=== PATIENT | male | born 1995 | race Caucasian/White ===

== ENCOUNTER 2020-03-12 15:13 | Emergency (ER) | payer MEDICAID ==
[~2020-03-12] VITALS: Ht 180.3 cm; Wt 79.4 kg
--- NOTE | 2020-03-12 15:20 | NUR ---
BIBRA 59 AND [employer], FROM HOME. PLACED ON 5150 FOR BEING DANGER TO SELF AND GRAVELY DISABLED FOR NOT EATING. PER REPORT, "TEXTED MOM THAT HE WANTS TO HURT HIMSELF, TOOK UNKNOWN AMOUNT OF XANAX, ADMITS TO DRINKING ALCOHOL". TO ER BED 12, HOOKED TO MONITOR, CHANGED TO HOSP GOWN, WARM BLANKET PROVIDED, PATIENT AAO x 4, BREATHING EVEN AND UNLABORED. SITTER AT BEDSIDE FOR SAFETY. DR HUANG AT BEDSIDE
--- NOTE | 2020-03-12 16:00 | NUR ---
URINE SAMPLE COLLECTED AND SENT TO LAB
--- NOTE | 2020-03-12 16:02 | NUR ---
ENVIRONMENTAL ENGINEERING AIDE AT BEDSIDE FOR XRAY
[2020-03-12 16:40] LABS: BILIRUBIN,URINE NEGATIVE (NEGATIVE); BLOOD, URINE SMALL Ery/uL (NEGATIVE); COLOR,URINE YELLOW (YELLOW); LEUKOCYTE ESTERASE ,URINE NEGATIVE (NEGATIVE); NITRITE, URINE NEGATIVE (NEGATIVE); PROTEIN,URINE NEGATIVE (NEGATIVE); UGLUCOSE NEGATIVE (NEGATIVE); UROBILINOGEN,URINE 0.2 EU/dL (0.2)
[2020-03-12 16:50] LABS: BASOPHILS # (AUTO) 0.1 /CMM (0.0-0.2); BASOPHILS % (AUTO) 1.7 % (0.0-2.0); EOSINOPHILS % (AUTO) 5.4 % (0.0-6.0); HEMATOCRIT 41 % (39-51); HEMOGLOBIN 14.1 g/dL (13.5-17.5); LYMPHOCYTES # (AUTO) 1.5 /CMM (0.8-4.8); LYMPHOCYTES % (AUTO) 31.1 % (20.0-44.0); MEAN CORPUSCULAR HGB CONC 35 g/dl (31.0-36.0); MEAN CORPUSCULAR VOLUME 96 fL (80-96); MONOCYTES # (AUTO) 0.5 /CMM (0.1-1.30); MONOCYTES % (AUTO) 10.1 % (2.0-12.0); NEUTROPHILS # (AUTO) 2.5 /CMM (1.8-8.9); NEUTROPHILS % (AUTO) 51.7 % (43.0-81.0); PLATELET COUNT (AUTO) 227 /CMM (150-450); RED BLOOD CELL COUNT(AUTO) 4.21 MIL/uL (4.5-6.0); WHITE BLOOD COUNT (AUTO) 4.9 K/uL (4.3-11.0)
[2020-03-12 16:51] LABS: BACTERIA,URINE None seen /HPF (None Seen); RBC,URINE 0-2 /HPF (0-2); SQUAMOUS EPITHELIAL CELL,UR 0-2 /HPF (None Seen); WBC,URINE 0-2 /HPF (0-3)
[2020-03-12 17:06] LABS: CALCIUM, SERUM 9.4 mg/dL (8.5-10.1); CARBON DIOXIDE 24 mmol/L (21-32); CHLORIDE 102 mmol/L (98-107); CREATININE 0.8 mg/dL (0.6-1.3); GLUCOSE 65 mg/dL (74-106); POTASSIUM 3.8 mmol/L (3.5-5.1); SODIUM SERUM 139 mmol/L (136-145); UREA NITROGEN, BLOOD 10 mg/dL (7-18)
[2020-03-12 17:33] LABS: ALANINE AMINOTRANSFERASE 135 U/L (12-78); ALBUMIN 4.2 g/dL (3.4-5.0); ALCOHOL, BLOOD 99 mg/dL (0-0); ALKALINE PHOSPHATASE 72 U/L (46-116); ASPARTATE AMINOTRANSFERASE 61 U/L (15-37); BILIRUBIN,DIRECT 0.6 mg/dL (0.0-0.2); BILIRUBIN,TOTAL 1.9 mg/dL (0.2-1.0); TOTAL PROTEIN, SERUM 7.6 g/dL (6.4-8.2)
[2020-03-12 17:34] LABS: ACETAMINOPHEN < 2 ug/ml (10-30)
--- NOTE | 2020-03-12 17:50 | NUR ---
CALLED POISON CONTROL [phone] VS 129/77 92 99%
[2020-03-12] MEDS ORDERED: TDAP [DIPH/PERTUSSIS/TET] 0.5 ML VIAL IM ONE ×2 (18:00→18:13)
[2020-03-12 18:26] VITALS: BP 122/66
--- NOTE | 2020-03-12 18:36 | NUR ---
[facility] await[facility].
--- NOTE | 2020-03-12 18:48 | NUR ---
sara tello talking to dr ngo.
--- NOTE | 2020-03-12 18:55 | NUR ---
called sai buckley for crisis eval. left a message.
--- NOTE | 2020-03-12 19:15 | NUR ---
PT AAOX4, VSS, RESPIRATIONS EVEN AND UNLABORED ON RA W/ AND NOTED. SITTER AT BEDSIDE FOR SAFETY. PRECAUTIONS IMPLEMENTED. WILL CONTINUE TO MONITOR
--- NOTE | 2020-03-12 20:06 | NUR ---
COVID SWAB SAMPLE COLLECTED SENT TO THE LAB.
[2020-03-12] MEDS ORDERED: LORAZEPAM 1 MG TABLET ONE (20:26)
[2020-03-12] MEDS ORDERED: LORAZEPAM 1 MG TABLET PO ONE (21:00)
--- NOTE | 2020-03-13 00:40 | NUR ---
CALLED CARD READER SAGE CARDENAS FOR EVALAUTION. NO ANSWER, WILL FOLLOW UP
--- NOTE | 2020-03-13 01:20 | NUR ---
RONALD CHIEF CARDIOPULMONARY TECHNOLOGIST CALLED. STATES WILL BE HERE IN ABOUT 1 HOUR.
--- NOTE | 2020-03-13 02:08 | NUR ---
Valery Crisis accounting methods analyst at bedside. Pt cleared from 5150 hold.
== END 2020-03-13 02:56 | disposition home or self-care (01) ==
LOC: ER 15:22
DX: R45.851 Suicidal ideations (principal); S80.02XA Contusion of left knee, initial encounter; S80.01XA Contusion of right knee, initial encounter; S60.222A Contusion of left hand, initial encounter; S50.02XA Contusion of left elbow, initial encounter; S50.01XA Contusion of right elbow, initial encounter; V87.8XXA Person injured in other specified noncollision transport accidents involving motor vehicle (traffic), initial encounter; Y92.89 Other specified places as the place of occurrence of the external cause; Z82.49 Family history of ischemic heart disease and other diseases of the circulatory system; F19.10 Other psychoactive substance abuse, uncomplicated; F10.129 Alcohol abuse with intoxication, unspecified; Y90.4 Blood alcohol level of 80-99 mg/100 ml; Z86.59 Personal history of other mental and behavioral disorders; R94.31 Abnormal electrocardiogram [ECG] [EKG]
CPT/HCPCS: 36415; 73080 ×2; 73130; 73564 ×2; 73590; 80048; 80076; 80299; 80307; 80320; 81001; 84484; 85025; 85610; 85730; 87426; 90471; 90715; 93005; 99285; C9803; 81000-TC; G0480

== ENCOUNTER 2020-08-16 01:35 | Emergency (ER) | payer MEDICAID ==
[~2020-08-16] VITALS: Ht 180.3 cm; Wt 79.4 kg
--- NOTE | 2020-08-16 01:46 | NUR ---
ELI 59 FROM HOME FOR ETOH.PT A, OX3, RESPONSIVE AND ADMITTED ON DRINKING ALCOHOL EARLIER. PER EMS"MOM FOUND HIM UNRESPONSIVE", PT TO BED 11, ALERT, RESPONDS TO SIMPLE QUESTIONS, PLACED ON MONITOR, NOT IN ANY DISTRESS, -SOB. DENIES CP. VSS. PENDING ER PROVIDER SADI
--- NOTE | 2020-08-16 06:00 | NUR ---
PT AWAKE, ANSWERING QUESTIONS APPROPRIETLY, PT UNABLE TO AMBULATE WITH STEADY GAIT AT THIS TIME.
--- NOTE | 2020-08-16 08:34 | NUR ---
PATIENT A/OX4, BREATHING EVEN AND UNLABORED, NO SOB NOTED, ROADTEST DONE, PATIENT AMBULATORY WITH STEADY GAIT. NEEDS ATTENDED. WATER PROVIDED. PATIENT'S CALLING HIS MOM FOR MILITARY SCIENCE INSTRUCTOR. Patient discharged to home in stable condition. Written and verbal after care instructions given. Patient verbalizes understanding of instruction.
[2020-08-16 08:35] VITALS: BP 104/55
--- NOTE | 2020-08-16 08:44 | NUR ---
MOM WILL PICK HIM UP IN 40 MINS
== END 2020-08-16 09:14 | disposition home or self-care (01) ==
LOC: ER 01:36
DX: F10.129 Alcohol abuse with intoxication, unspecified (principal); F32.9 Major depressive disorder, single episode, unspecified; F41.9 Anxiety disorder, unspecified; Y90.9 Presence of alcohol in blood, level not specified

== ENCOUNTER 2021-11-27 14:06 | Inpatient (IN) | payer BC, MEDICAID ==
[~2021-11-27] VITALS: Ht 177.8 cm; Wt 92.1 kg
--- NOTE | 2021-11-27 14:08 | NUR ---
BIBRA77 FRM HOME, "PARENTS FOUND UNRESPOSIVE IN THE BATHROOM, SEROQUEL PILL BOTTLE EMPTY FOUND W THE PATIENT" 2MG IV NARCAN GIVEN, UNRESPONSIVE. PT ATTACHED OT MONITOR. RESPONSIVE TO PAIN. DR LAUGHLIN AT BEDSIDE. AWAITING MD ORDERS.
--- NOTE | 2021-11-27 14:10 | NUR ---
IV ESTBLIHASE R AC 18G. LABS DRAWN AND COLLECTED AT BEDSIDE
--- NOTE | 2021-11-27 14:19 | NUR ---
COVID TEST COLLECTED AND SENT
--- NOTE | 2021-11-27 14:19 | NUR ---
URINE COLLECTED AND SENT
[2021-11-27 14:27] LABS: HEMATOCRIT 46 % (39-51); HEMOGLOBIN 15.9 g/dL (13.5-17.5); MEAN CORPUSCULAR HGB CONC 34 g/dl (31.0-36.0); MEAN CORPUSCULAR VOLUME 94 fL (80-96); NEUTROPHILS % (AUTO) 76.7 % (43.0-81.0); PLATELET COUNT (AUTO) 199 K/uL (150-450); RED BLOOD CELL COUNT(AUTO) 4.93 MIL/uL (4.5-6.0); WHITE BLOOD COUNT (AUTO) 10.3 K/uL (4.3-11.0)
[2021-11-27 14:28] LABS: BASOPHILS % (AUTO) 0.4 % (0.0-2.0); EOSINOPHILS % (AUTO) 1.2 % (0.0-6.0); LYMPHOCYTES # (AUTO) 1.7 K/uL (0.8-4.8); LYMPHOCYTES % (AUTO) 16.6 % (20.0-44.0); MONOCYTES # (AUTO) 0.5 K/uL (0.1-1.30); MONOCYTES % (AUTO) 5.1 % (2.0-12.0); NEUTROPHILS # (AUTO) 7.9 K/uL (1.8-8.9)
[2021-11-27] MEDS ORDERED: IV NS 0.9% 1,000 ML BAG IV ONE (14:30)
--- NOTE | 2021-11-27 14:31 | NUR ---
CALLED POISON CONTROL [id number] PT CONDITION AND STATUS. THEY SUGGESTED- - THE PT MAY PRSENT WITH POTENTIAL SEIZURE - LOOK FOR QTC AND QRS PROLONGATION - IF THE QRS IS ABOVE 120, BICARB SHOULD BE USED TO TREAT - IF THE QTC IS ABOVE 500, 1-2g OF MAGNESIUM SHOULD BE USED TO TREAT - USE BENZOS TO TREAT AGITATION AND SEIZURES -PT MAY PRESENT WITH HYPO. TREAT WITH EPI MD NOTIFIED
[2021-11-27 15:20] LABS: BILIRUBIN,URINE NEGATIVE (NEGATIVE); COLOR,URINE YELLOW (YELLOW); LEUKOCYTE ESTERASE ,URINE NEGATIVE (NEGATIVE); NITRITE, URINE NEGATIVE (NEGATIVE); PROTEIN,URINE NEGATIVE (NEGATIVE); UGLUCOSE NEGATIVE (NEGATIVE); UROBILINOGEN,URINE 0.2 EU/dL (0.2)
[2021-11-27 15:25] LABS: CALCIUM, SERUM 9.4 mg/dL (8.5-10.1); CARBON DIOXIDE 25 mmol/L (21-32); CHLORIDE 101 mmol/L (98-107); CREATININE 0.9 mg/dL (0.6-1.3); GLUCOSE 143 mg/dL (74-106); POTASSIUM 3.4 mmol/L (3.5-5.1); SODIUM SERUM 139 mmol/L (136-145); UREA NITROGEN, BLOOD 14 mg/dL (7-18)
[2021-11-27 15:28] LABS: BACTERIA,URINE None seen /HPF (None Seen); SQUAMOUS EPITHELIAL CELL,UR 0-2 /HPF (None Seen); WBC,URINE 0-2 /HPF (0-3)
[2021-11-27 15:35] LABS: ALANINE AMINOTRANSFERASE 31 U/L (12-78); ALBUMIN 4.3 g/dL (3.4-5.0); ALKALINE PHOSPHATASE 76 U/L (46-116); ASPARTATE AMINOTRANSFERASE 24 U/L (15-37); BILIRUBIN,DIRECT 0.3 mg/dL (0.0-0.2); BILIRUBIN,TOTAL 1.2 mg/dL (0.2-1.0); TOTAL PROTEIN, SERUM 7.9 g/dL (6.4-8.2)
[2021-11-27 15:46] LABS: ACETAMINOPHEN < 10 ug/ml (10-30); ALCOHOL, BLOOD < 3 mg/dL (0-0)
--- NOTE | 2021-11-27 15:56 | NUR ---
PT MOTHER MICHAEL [phone]
--- NOTE | 2021-11-27 16:21 | NUR ---
EPIC SECURITY FLEX OFFICER PAGED
[2021-11-27] MEDS ORDERED: ACETAMINOPHEN 325 MG TABLET PO PRN (17:00)
[2021-11-27] MEDS ORDERED: MAGNESIUM HYDROXIDE 30 ML UDC PO PRN (17:00)
[2021-11-27] MEDS ORDERED: Z GUARD REMEDY 4 OZ OINT TP PRN (17:00)
[2021-11-27] MEDS ORDERED: MAG HYDROX/AL HYDROX/SIMETH 30 ML UDC PO PRN (17:00)
[2021-11-27] MEDS ORDERED: ONDANSETRON HCL/PF 4 MG/2 ML VIAL IVP PRN (17:00)
--- NOTE | 2021-11-27 20:31 | NUR ---
DINORAH EPRP PAGED.
--- NOTE | 2021-11-27 21:35 | NUR ---
UPDATED MOTHER ON SONS CONDITION.
--- NOTE | 2021-11-27 22:29 | NUR ---
PATIENT IN BED SLEEPING, EASY TO AROUSE, VSS, WILL CONTINUE TO MONITOR.
--- NOTE | 2021-11-27 22:53 | NUR ---
report givent o marcio raymond
--- NOTE | 2021-11-27 22:53 | NUR ---
Lorie hilliard in [facility] - 11/27/21 at 2253 by TESSA [id number]
--- NOTE | 2021-11-27 23:05 | NUR ---
PATIENT TRANSFERRED UNDER ACLS
--- NOTE | 2021-11-27 23:20 | NUR ---
RN NOTES PT RECIEVED IN RM 327-2 WITH EYES CLOSED BUT EASY TO AROUSED.FROM ER VIA GURNEY ON RM AIR EVER WELL NO SIGN SOB/DISTRESS NOTED.IV ACCESS RFA 318G AND L WRIST 20G INTACT AND PATENT.V/S TAKEN AND RECORDED,NO SIGN OF PAIN/DISCOMFORT AT THIS TIME.KEPT PT CLEANED AND DRY AT ALL TIME.CALL LIGHT WITHIN REACH.BED LOCKED AND LOW POSITION.CONTINUE TO MONITOR.
[2021-11-28] VITALS (7 sets, daily range): BP systolic 108–146; BP diastolic 71–99
[2021-11-28] MEDS ORDERED: POTASSIUM CHLORIDE 20 MEQ TAB.PRT.SR PO ONE (01:00)
[2021-11-28] MEDS: IV NS 0.9% 1,000 ML IV SCH ×4 (01:02→23:30)
--- NOTE | 2021-11-28 06:30 | NUR ---
RN CLOSING NOTES PT IN BED SLEEPING ON RM AIR EVER WELL NO SIGN SOB/DISTRESS NOTED.IV ACCESS RFA 318G AND L WRIST 20G INTACT AND PATENT.ALL DUE MEDS GIVEN ORDER.NO SIGN OF PAIN/DISCOMFORT DURING SHIFT.ALL NEEDS ATTENDED.KEPT PT CLEANED AND DRY AT ALL TIME.CALL LIGHT WITHIN REACH.BED LOCKED AND LOW POSITION.WILL ENDORSED TO NEXT SHIFT
[2021-11-28 07:10] LABS: BASOPHILS % (AUTO) 0.2 % (0.0-2.0); EOSINOPHILS % (AUTO) 0.1 % (0.0-6.0); HEMATOCRIT 43 % (39-51); HEMOGLOBIN 14.6 g/dL (13.5-17.5); LYMPHOCYTES # (AUTO) 0.8 K/uL (0.8-4.8); MEAN CORPUSCULAR HGB CONC 34 g/dl (31.0-36.0); MEAN CORPUSCULAR VOLUME 93 fL (80-96); MONOCYTES # (AUTO) 0.8 K/uL (0.1-1.30); MONOCYTES % (AUTO) 5.6 % (2.0-12.0); NEUTROPHILS # (AUTO) 11.8 K/uL (1.8-8.9); NEUTROPHILS % (AUTO) 88.1 % (43.0-81.0); PLATELET COUNT (AUTO) 210 K/uL (150-450); RED BLOOD CELL COUNT(AUTO) 4.58 MIL/uL (4.5-6.0); WHITE BLOOD COUNT (AUTO) 13.4 K/uL (4.3-11.0)
[2021-11-28 07:14] LABS: CALCIUM, SERUM 8.8 mg/dL (8.5-10.1); MAGNESIUM 2.2 mg/dL (1.8-2.4); PHOSPHORUS 2.7 mg/dL (2.5-4.9); POTASSIUM 3.7 mmol/L (3.5-5.1)
[2021-11-28] MEDS ORDERED: QUET200T PO (07:21)
--- NOTE | 2021-11-28 07:30 | NUR ---
BRIM PLATER NOTES PT IN BED, ASLEEP, EASY TO AROUSE, ALERT AND VERBALLY RESPONSIVE, ABLE TO MAKE NEEDS KNOWN, EATING BREAKFAST, NO BEHAVIOR PROBLEM AT THIS TIME, NEEDS ATTENDED.
[2021-11-28 10:58] LABS: BAND % (MANUAL) 2 % (0.0-5.0); BASOPHILS % (MANUAL) 0 % (0.0-2.0); EOSINOPHILS % (MANUAL) 1 % (0-4); LYMPHOCYTES % (MANUAL) 10 % (16-48); MONOCYTES % (MANUAL) 7 % (0-11.0); NEUTROPHILS % (MANUAL) 80 (42-76)
--- NOTE | 2021-11-28 18:22 | NUR ---
MEMBERSHIP COORDINATOR NOTES PT IN BED, SLEEPS INTERMITTENTLY, EASILY AROUSABLE, VERBALLY RESPONSIVE AND ABLE TO MAKE NEEDS KNOWN, PT SEEN BY DR. NOVAO TODAY, PLAN OF CARE DISCUSSED TO PT'S MOM, VERBALIZED UNDERSTANDING, AWAITING TRANSFER TO STRONG, SMOKING PIPE COATER DISCUSSED PLAN FOR TRANSFER WITH PT'S MOM, IV FLUIDS INFUSING WELL, ALL NEEDS ATTENDE.
--- NOTE | 2021-11-28 19:02 | NUR ---
SHIFT NURSE MANAGER NOTES POISON CONTROL CALLED, UPDATES REGARDING PT STATUS GIVEN, STATED THAT THEY ARE GOING TO CLOSE THE CASE.
--- NOTE | 2021-11-28 19:55 | NUR ---
BLANKING PRESS OPERATOR OPENING NOTES; RECEIVED PATIENT AWAKE IN BED, BE DIN LOW POSITION CALL LIGHTS WITHIN REACH, NO COMPLAIN OF PAIN AND DISCOMFORT AT THIS TIME, ON ROOM AIR SATURATING WELL, PATIENT ON TELE MONITOR ST-110 NO SYMPTOMS WAS OBSERVED, WITH IV LINE AT RFA#18 AND RIGHT WRIST WITH ONGOING NSS@100ML/HR INFUSING WELL, ON BED REST, PATIENT KEPT CLEAN AND DRY ALL NEEDS MET WILL CONTINUE TO MONITOR.
[2021-11-29 04:00] VITALS: BP 139/75
--- NOTE | 2021-11-29 06:17 | NUR ---
LAUNDRY ROOM ATTENDANT CLOSING NOTES: PATIENT SLEEP IN BED COMFORTABLY, BED IN LOW POSITION CALL LIGHTS WITHIN REACH, NO COMPLAIN OF PAIN AND DISCOMFORT AT THIS TIME ON ROOM AIR SATURATING WELL, WITH IV LINR AT RFA#18 WITH NSS@100ML/HR INFUSING WELL, PATIENT ON TELE [id number], STILL ON BED REST, PATIENT KEPT CLEAN AND DRY ALL NEEDS MET ENDORSE TO INCOMING SHIFT.
--- NOTE | 2021-11-29 07:30 | NUR ---
ASSOCIATE DEAN OF STUDENTS NOTES PT IN BED, AWAKE, ALERT AND ORIENTED, NO SOB, NO COMPLAINT OF PAIN, IV FLUIDS INFUSING WELL, STATES HE FEELS BETTER TODAY, CALL LIGHT WITHIN REACH.
[2021-11-29] MEDS: IV NS 0.9% 1,000 ML IV SCH (10:15)
--- NOTE | 2021-11-29 11:10 | NUR ---
DISTRIBUTION OPERATION SUPERVISOR NOTES PT ABLE TO WALK TO THE BATHROOM AND ALONG THE HALLWAY WITH STEADY GAIT, HR WENT UP TO 150s, DR. NOVOA MADE AWARE, SAW PT, PT ALSO SEEN BY DR. LAWSON.
--- NOTE | 2021-11-29 15:45 | NUR ---
CELLULOID TRIMMER NOTES PT AWAKE, ALERT AND ORIENTED, NO COMPLAINT OF PAIN OR DISCOMFORT, NO BEHAVIOR PROBLEM, COMPLIANT WITH NURSING CARE, ABLE TO AMBULATE INSIDE HIS ROOM AND ALONG THE HALLWAY WITH STEADY GAIT, SEEN BY DR. NOVOA TODAY, ALSO SEEN BY DR. LULU MD CLEARED HIM TO GO HOME WITH FAMILY AND NO NEED TO TRANSFER TO ANOTHER FACILITY, POLE SHAVER HELPER INFORMED PT'S MOM, DR. NOVOA MADE AWARE THAT PT IS GOING HOME AND IS CLEARED BY PSYCH, DISCHARGE INSTRUCTIONS PROVIDED TO PT, VERBALIZED UNDERSTANDING, BELONGINGS ACCOUNTED FOR, PT REFUSED SKIN ASSESSMENT AND PHOTOS ON DISCHARGE, PT PICKED UP BY HIS DAD, ASSISTED BY COMMERCIAL ENERGY RATER TO HOSPITAL LOBBY, LEFT IN STABLE CONDITION.
== END 2021-11-29 16:21 | disposition home or self-care (01) | DRG 812 ==
LOC: ER 14:09 → TELE 22:39
PROVIDERS: ADMIT Internal Medicine; ATTEND Internal Medicine
DX: T43.591A Poisoning by other antipsychotics and neuroleptics, accidental (unintentional), initial encounter (principal); G92.9 Unspecified toxic encephalopathy; F32.9 Major depressive disorder, single episode, unspecified; Z20.822 Contact with and (suspected) exposure to COVID-19; Y92.002 Bathroom of unspecified non-institutional (private) residence as the place of occurrence of the external cause; F41.9 Anxiety disorder, unspecified; F90.9 Attention-deficit hyperactivity disorder, unspecified type; F19.10 Other psychoactive substance abuse, uncomplicated; F11.90 Opioid use, unspecified, uncomplicated; Y90.9 Presence of alcohol in blood, level not specified
CPT/HCPCS: 36415; 70450-TC; 71045-TC; 80048-TC; 80076-TC; 81001; 82962-TC; 83735-TC; 84100-TC; 84484-TC; 85025-TC; 87081-TC; C9803; G0378; G0480; J7030